=== PATIENT | female | born 2000 | race Caucasian/White ===

== ENCOUNTER 2020-11-27 18:14 | Emergency (ER) | payer OTHER ==
[~2020-11-27] VITALS: Ht 172.7 cm; Wt 62.6 kg
[2020-11-27] MEDS ORDERED: SULFAMETHOXAZO1 EACH PO (19:37)
== END 2020-11-27 20:22 | disposition home or self-care (01) ==
LOC: ER 18:14 → EMR PED 18:14
DX: N39.0 Urinary tract infection, site not specified (principal)

== ENCOUNTER 2022-02-10 18:59 | Emergency (ER) | payer OTHER ==
[~2022-02-10] VITALS: Ht 170.2 cm; Wt 68.0 kg
[~2022-02-10 18:59] MED LIST: SULFAMETHOXAZO1 EACH PO
[2022-02-10] MEDS ORDERED: EC-NAPROSYN375 MG PO (22:44)
[2022-02-10] MEDS ORDERED: ORPHENADRINE C100 MG PO (22:44)
== END 2022-02-10 22:59 | disposition home or self-care (01) ==
LOC: ER 18:59
DX: S39.92XA Unspecified injury of lower back, initial encounter (principal); W10.9XXA Fall (on) (from) unspecified stairs and steps, initial encounter; Y93.9 Activity, unspecified; Y92.019 Unspecified place in single-family (private) house as the place of occurrence of the external cause; S69.91XA Unspecified injury of right wrist, hand and finger(s), initial encounter